=== PATIENT | male | born 1995 | race Caucasian/White ===

== ENCOUNTER 2021-10-20 19:09 | Emergency (ER) | payer OTHER ==
[2021-10-20] MEDS ORDERED: HYDROCODON-ACE1 EAC4 PO (20:15)
== END 2021-10-20 20:45 | disposition home or self-care (01) ==
LOC: ER1 19:09
DX: S83.91XA Sprain of unspecified site of right knee, initial encounter (principal); X50.9XXA Other and unspecified overexertion or strenuous movements or postures, initial encounter; X50.1XXA Overexertion from prolonged static or awkward postures, initial encounter; Y92.009 Unspecified place in unspecified non-institutional (private) residence as the place of occurrence of the external cause
CPT/HCPCS: 29530; 73564; 99283